=== PATIENT | male | born 1970 | race Caucasian/White ===

== ENCOUNTER 2017-08-06 10:35 | Emergency (ER) | payer OTHER ==
[2017-08-06 10:53] VITALS: BMI 35.5
[2017-08-06] MEDS ORDERED: SODIUM CHLORIDE 1,000 ML IV STA ×3 (11:32→15:46)
[2017-08-06 12:51] LABS: ANION GAP 9 (8-16); BASO % 0.1 % (0-2.0); CALCIUM 8.5 mg/dL (8.5-10.1); CO2 25 mmol/L (21-32); GLUCOSE,RANDOM 146 mg/dL (74-106); MCH 25.5 pg (25.7-33.7); MCHC 32.5 g/dl (32.0-35.9); MEAN CELL VOLUME 78.4 fl (80-96); MEAN PLT VOLUME 8.7 fl (7.5-11.1); NEUT % 72.6 % (42.8-82.8); PLATELET COUNT 128 K/MM3 (134-434); RDW 13.7 % (11.9-15.9); SGOT/AST 9 U/L (15-37); SGPT/ALT 23 U/L (12-78); TOT PROT 7.4 g/dl (6.4-8.2); WHITE BLOOD COUNT 7.9 K/mm3 (4.0-10.0)
[2017-08-06 12:52] LABS: ALK PHOS 65 U/L (45-117)
[2017-08-06 12:55] LABS: URINE APPEARANCE CLEAR; URINE BILIRUBIN NEGATIVE (NEGATIVE); URINE BLOOD 1+ (NEGATIVE); URINE COLOR LTYELLOW; URINE GLUCOSE (UA) 3+ (NEGATIVE); URINE KETONE TRACE (NEGATIVE); URINE LEUK ESTERASE NEGATIVE (NEGATIVE); URINE NITRITE NEGATIVE (NEGATIVE); URINE PROTEIN NEGATIVE (NEGATIVE); URINE UROBILINOGEN NEGATIVE mg/dL (0.2-1.0)
--- NOTE | 2017-08-06 13:18 | PDOC ---
History of Present Illness - General Chief Complaint: Headache Stated Complaint: FEVER, CHILLS Time Seen by Provider: 08/06/17 11:10 History Source: Patient Exam Limitations: No Limitations - History of Present Illness Initial Comments: 08/06/17 13:11 Pt is a 46 M w/ PMH DM and sleeve gastrectomy 4 years ago (get B12 supplement only), who presented to ED with headache, increased thirst, subjective fevers, and one episode of nonblood diarrhea. Pt took a flight at 6 this morning from [place] and around assisted through his trip began to feel unwell. He states he feels better now than he did on the plane. Pt denies increased urination, cough, nasal congestion, nausea, vomiting, palpitations or rapid heart rate, shortness of breath, chest pain. He also denies abdominal pain. Past History - Past Medical History Allergies/Adverse Reactions: Allergies Allergy/AdvReac Type Severity Reaction Status Date / Time No Known Allergies Allergy Verified 08/06/17 10:48 Home Medications: Ambulatory Orders Dulaglutide [Trulicity] 0 mg SQ WEEKLY 08/06/17 Metformin HCl [Glucophage -] 0 mg PO BID 08/06/17 COPD: Yes Diabetes: Yes - Surgical History GI Surgery: Yes (gastric sleeve) - Suicide/Smoking/Psychosocial Hx Smoking History: Never smoked Information on smoking cessation initiated: No Hx Alcohol Use: No Drug/Substance Use Hx: No Substance Use Type: None Review of Systems - Review of Systems Able to Perform ROS?: Yes Is the patient limited Malay proficient: No Constitutional: Yes: Symptoms Reported, See HPI, Chills, Fever, Loss of Appetite , Malaise. No: Diaphoresis, Weakness HEENTM: Yes: Symptoms Reported, See HPI. No: Blurred Vision, Recent change in vision, Double Vision, Ear Discharge, Nose Congestion, Nose Bleeding, Hearing Loss, Throat Swelling, Difficulty Swallowing Respiratory: Yes: Symptoms reported, See HPI. No: Cough, Shortness of Breath, SOB with Exertion, SOB at Rest, Wheezing, Productive cough, Hemoptysis Cardiac (ROS): Yes: Symptoms Reported, See HPI. No: Chest Pain, Edema, Irregular Heart Rate, Lightheadedness, Palpitations, Syncope ABD/GI: Yes: Symptoms Reported, See HPI, Diarrhea (x1. nonbloody). No: Abdominal Distended, Abd. Pain w/ defecation, Blood Streaked Bowels, Constipated , Poor Fluid Intake, Rectal Bleeding, Vomiting : Yes: Symptoms Reported, See HPI. No: Burning, Discharge, Frequency (pt reports no increased urination. frequency or volume), Flank Pain, Hematuria Musculoskeletal: Yes: Symptoms Reported. No: Back Pain *Physical Exam - Vital Signs Last Vital Signs Temp Pulse Resp BP Pulse Ox 98.9 F 130 H 20 106/69 97 08/06/17 10:48 08/06/17 10:48 08/06/17 10:48 08/06/17 10:48 08/06/17 10:48 - Physical Exam General Appearance: Yes: Nourished, Appropriately Dressed, Mild Distress ( uncomfortable appearing. No respirratory distress) HEENT: positive: EOMI, ASHISH, Normal ENT Inspection (mildly dry mucus membranes) . negative: Pharyngeal Erythema Neck: positive: Trachea midline, Normal Thyroid, Supple Respiratory/Chest: positive: Lungs Clear, Normal Breath Sounds. negative: Chest Tender, Respiratory Distress, Accessory Muscle Use, Labored Respiration, Rapid RR Cardiovascular: positive: Regular Rhythm, Regular Rate, S1, S2. negative: Edema , JVD, Murmur Vascular Pulses: Dorsalis-Pedis (R): 2+, Doralis-Pedis (L): 2+ Gastrointestinal/Abdominal: positive: Normal Bowel Sounds, Flat, Soft. negative : Tender, Organomegaly, Increased Bowel Sounds, Distended, Guarding Musculoskeletal: positive: Normal Inspection. negative: CVA Tenderness Extremity: positive: Normal Capillary Refill, Normal Inspection, Normal Range of Motion. negative: Tender, Pedal Edema, Swelling, Calf Tenderness (Homman neg. [place] neg) Neurologic: positive: Fully Oriented, Alert, Normal Response, Motor Strength 5/5 ED Treatment Course - LABORATORY CBC & Chemistry Diagram: 08/06/17 12:15 08/06/17 12:15 - ADDITIONAL ORDERS Additional order review: Laboratory Results 08/06/17 08/06/17 12:15 12:15 Sodium 134 L Cancelled Potassium 3.5 Cancelled Chloride 100 Cancelled Carbon Dioxide 25 Cancelled Anion Gap 9 Cancelled BUN 19 H Cancelled Creatinine 1.0 Cancelled Creat Clearance w eGFR > 60 Cancelled Random Glucose 146 H Cancelled Calcium 8.5 Cancelled Total Bilirubin 1.0 Cancelled AST 9 L Cancelled ALT 23 Cancelled Alkaline Phosphatase 65 Cancelled Total Protein 7.4 Cancelled Albumin 4.0 Cancelled 08/06/17 12:15 RBC 6.03 H MCV 78.4 L MCHC 32.5 RDW 13.7 MPV 8.7 Neutrophils % 72.6 Lymphocytes % 14.8 Monocytes % 12.5 H Eosinophils % 0.0 Basophils % 0.1 - Medications Given in the ED: ED Medications Discontinued Medications Generic Name Dose Route Start Last Admin Trade Name Denzel PRN Reason Stop Dose Admin Sodium Chloride 1,000 mls @ 1,000 mls/hr 08/06/17 11:32 08/06/17 12:24 Normal Saline - IV 08/06/17 12:31 1,000 mls/hr ASDIR STA Administration Medical Decision Making - Medical Decision Making 08/06/17 13:21 Pt is a 46 M w/ PMH DM and sleeve gastrectomy 4 years ago who presented to ED with headache, malaise, increased thirst and 1 epsiode of nonbloody diarrhea. -likely gastro vs possible elevated blood sugars, r/o [facility] -CBC -Chem -BGM -Serum acetone -UA -NS 08/06/17 14:38 Pt is feeling much better, but he is still mildly tachycardic. 08/06/17 16:18 Vital signs taken manually -temp 99.7, HR 104, BP 125/70, RR 12, O2 sat 98% Although tachycardia is mild (pt has been in low 100s), it has been persistent despite fluids. Will order fields Cx and EKG to r/o acute process. *DC/Admit/Observation/Transfer Diagnosis at time of Disposition: Dehydration - Discharge Dispostion Disposition: HOME Condition at time of disposition: Stable Admit: No - Referrals Referrals: STAFF,NOT ON [Primary Care Provider] - Vaibhav Baryr MD [Staff Physician] - - Patient Instructions Printed Discharge Instructions: DI for Dehydration -- Adult Additional Instructions: Please make sure you take all your prescription medications as directed. Please follow up with your primary care doctor. If your symptoms get worse, or if you develop new symptoms, please return to the emergency department. If you develop fever, chills, shortness of breath, or chest pain, please return to the emergency room. - Post Discharge Activity
[2017-08-06 13:47] VITALS: TEMP 98.6
[2017-08-06 13:51] LABS: URINE MUCUS RARE; URINE RBC 1 /hpf (0-3); URINE WBC 1 /hpf (3-5)
[2017-08-06 15:05] LABS: ACETONE SERUM NEGATIVE (NEGATIVE)
--- NOTE | 2017-08-06 15:12 | PDOC ---
Attending Attestation - Resident Resident Name: Gallo Tipton - ED Attending Attestation I have performed the following: I have examined & evaluated the patient, The case was reviewed & discussed with the resident, I agree w/resident's findings & plan, Exceptions are as noted - HPI HPI: 08/06/17 15:08 46 M with h/o DM, sleeve gastrectomy presenting to ER with 1 day of fevers, diarrhea and malaise. He states that his symptoms started while he was flying from [place] yesterday. He reports abdominal cramps and one episode of nonbloody diarrhea. States that his cramps resolved after moving his bowels. He did not have any additional episodes of diarrhea. Denies N/V. He endorses subjective fevers and increased thirst. Denies dysuria, denies urinary frequency. Denies CP/SOB. Denies cough/congestion. - Physicial Exam PE: 08/06/17 15:09 "GENERAL: Awake, alert, and fully oriented, in no acute distress HEAD: No signs of trauma EYES: PERRLA, EOMI, sclera anicteric, conjunctiva clear ENT: Auricles normal inspection, hearing grossly normal, nares patent, oropharynx clear without exudates. Moist mucosa NECK: Nontender, no stepoffs, Normal ROM, supple, no lymphadenopathy, JVD, or masses LUNGS: Breath sounds equal, clear to auscultation bilaterally. No wheezes, and no crackles HEART: Regular rate and rhythm, normal S1 and S2, no murmurs, rubs or gallops ABDOMEN: Soft, nontender, normoactive bowel sounds. No guarding, no rebound. No masses EXTREMITIES: Normal range of motion, no edema. No clubbing or cyanosis. No cords, erythema, or tenderness NEUROLOGICAL: Cranial nerves II through XII intact. 5/5 strength and sensation in all extremities, Normal speech, normal gait SKIN: Warm, Dry, normal turgor, no rashes or lesions noted. " - Medical Decision Making 08/06/17 15:10 46 M with fevers, diarrhea, and malaise x 1 day. Likely viral gastroenteritis. Pt with benign abdomen, making acute intraabdominal process unlikely. Pt tachycardic in ER and was reportedly febrile in Dr. Azul's office prior to arrival. HR likely 2/2 volume depletion. Pt otherwise with normal BP, no fever in ER. No signs of sepsis. - Labs - CXR - IVF - Reassess 08/06/17 16:24 CBC,CMP WBC 7.9 K/mm3 (4.0-10.0) 08/06/17 12:15 RBC 6.03 M/mm3 (4.00-5.60) H 08/06/17 12:15 Hgb 15.4 GM/dL (11.7-16.9) 08/06/17 12:15 Hct 47.3 % (35.4-49) 08/06/17 12:15 MCV 78.4 fl (80-96) L 08/06/17 12:15 MCH 25.5 pg (25.7-33.7) L 08/06/17 12:15 MCHC 32.5 g/dl (32.0-35.9) 08/06/17 12:15 RDW 13.7 % (11.9-15.9) 08/06/17 12:15 Plt Count 128 K/MM3 (134-434) L 08/06/17 12:15 MPV 8.7 fl (7.5-11.1) 08/06/17 12:15 Neutrophils % 72.6 % (42.8-82.8) 08/06/17 12:15 Lymphocytes % 14.8 % (8-40) 08/06/17 12:15 Monocytes % 12.5 % (3.8-10.2) H 08/06/17 12:15 Eosinophils % 0.0 % (0-4.5) 08/06/17 12:15 Basophils % 0.1 % (0-2.0) 08/06/17 12:15 Sodium 134 mmol/L (136-145) L 08/06/17 12:15 Potassium 3.5 mmol/L (3.5-5.1) 08/06/17 12:15 Chloride 100 mmol/L (98-107) 08/06/17 12:15 Carbon Dioxide 25 mmol/L (21-32) 08/06/17 12:15 Anion Gap 9 (8-16) 08/06/17 12:15 BUN 19 mg/dL (7-18) H 08/06/17 12:15 Creatinine 1.0 mg/dL (0.7-1.3) 08/06/17 12:15 Creat Clearance w eGFR > 60 (>60) 08/06/17 12:15 Random Glucose 146 mg/dL (74-106) H 08/06/17 12:15 Calcium 8.5 mg/dL (8.5-10.1) 08/06/17 12:15 Total Bilirubin 1.0 mg/dL (0.2-1.0) 08/06/17 12:15 AST 9 U/L (15-37) L 08/06/17 12:15 ALT 23 U/L (12-78) 08/06/17 12:15 Alkaline Phosphatase 65 U/L (45-117) 08/06/17 12:15 Total Protein 7.4 g/dl (6.4-8.2) 08/06/17 12:15 Albumin 4.0 g/dl (3.4-5.0) 08/06/17 12:15 Pt reassessed s/p 3L NS. HR now improved to 104. Pt reports he feels much better. EKG NSR, no LYNETTE/STDs, no TWIs Discussed with Dr. Azul, who recommends blood cultures, which he will follow up in clinic. He agrees with plan to discharge patient at this time if he feels better and clinically looks well. I discussed the physical exam findings, ancillary test results and final diagnoses with the patient. I answered all of the patient's questions. The patient was satisfied with the care received and felt comfortable with the discharge plan and treatment plan. The patient agrees to follow up with the primary care physician within 24-72 hours.
[2017-08-06] MEDS ORDERED: IBUPROFEN 200 MG TABLET PO ONE (17:35)
[2017-08-06] MEDS ORDERED: IBUPROFEN 400 MG TABLET (FP) PO ONE ×2 (17:41→17:42)
[2017-08-06 17:51] VITALS: BP 142/88; PULSE 78
[2017-08-06 19:25] LABS: URINE LEUK ESTERASE Negative (NEGATIVE)
[2017-08-06 22:09] LABS: LYMPH # 1.2 (8-40); NEUT # 5.7 # (42.8-82.8)
--- NOTE | 2017-08-07 16:28 | EKG ---
Test Reason : Blood Pressure : / mmHG Vent. Rate : 106 BPM Atrial Rate : 106 BPM P-R Int : 154 ms QRS Dur : 100 ms QT Int : 350 ms P-R-T Axes : 031 065 013 degrees QTc Int : 464 ms SINUS TACHYCARDIA OTHERWISE NORMAL ECG NO PREVIOUS ECGS AVAILABLE Confirmed by GIULIANO CORRALES MD ([id number]) on 08/07/2017 4:28:26 PM Referred By: Confirmed By:GIULIANO CORRALES MD
== END 2017-08-06 17:52 | disposition home or self-care (01) ==
LOC: JER 10:35
PROC: 3E0337Z Introduction of Electrolytic and Water Balance Substance into Peripheral Vein, Percutaneous Approach (ICD-10-PCS; principal; 2017-08-06)
DX: E86.0 Dehydration (principal); E11.9 Type 2 diabetes mellitus without complications; Z79.84 Long term (current) use of oral hypoglycemic drugs; Z98.84 Bariatric surgery status
CPT/HCPCS: 36415; 71010-TC; 80053; 81003; 81015; 82009; 85025; 87040; 87086; 93005; 93010; 99282-25